=== PATIENT | male | born 1980 | race Caucasian/White ===

== ENCOUNTER 2018-12-22 08:09 | Emergency (ER) | payer SELFPAY ==
--- NOTE | 2018-12-22 10:02 | ER Document Report ---
HPI - HPI Patient complains to provider of: Skin rash, sore throat Time Seen by Provider: 12/22/18 09:56 Onset: Last week Onset/Duration: Worse Quality of pain: Achy Pain Level: 4 Context: Patient complains of skin rash to extremities and chest for the past week that worsened over the past 3 days. Patient states he has been picking at the skin and is very sore. Patient also complains of a sore throat. No fever. Associated Symptoms: Other - Skin rash. denies: Fever, Headache, Sore throat Exacerbated by: Denies Relieved by: Denies Similar symptoms previously: Yes Recently seen / treated by doctor: No - ROS ROS below otherwise negative: Yes Systems Reviewed and Negative: Yes All other systems reviewed and negative - CONSTITUTIONAL Constitutional: DENIES: Fever, Chills - EENT EENT: REPORTS: Sore Throat - NEURO Neurology: DENIES: Headache, Weakness - GASTROINTESTINAL Gastrointestinal: DENIES: Nausea, Patient vomiting - MUSCULOSKELETAL Musculoskeletal: DENIES: Neck Pain - DERM Skin Color: Normal Skin Problems: Rash Past Medical History - General Information source: Patient - Social History Smoking Status: Current Every Day Smoker Smoking Education Provided: Yes Frequency of alcohol use: None Drug Abuse: None Occupation: None Family History: Reviewed & Not Pertinent Patient has suicidal ideation: No Patient has homicidal ideation: No Renal/ Medical History: Denies: Hx Peritoneal Dialysis Psychiatric Medical History: Reports: Hx Anxiety, Hx Depression Past Surgical History: Reports: Hx Orthopedic Surgery - facial reconstruction Vertical Provider Document - CONSTITUTIONAL Agree With Documented VS: Yes Exam Limitations: No Limitations General Appearance: WD/WN, No Apparent Distress - INFECTION CONTROL TRAVEL OUTSIDE OF THE [place] IN LAST 30 DAYS: No - HEENT HEENT: Atraumatic, Normocephalic, Pharyngeal Tenderness. negative: Pharyngeal Exudate, Pharyngeal Erythema, Tympanic Membrane Red, Tympanic Membrane Bulging - NECK Neck: Normal Inspection, Supple. negative: Lymphadenopathy-Left, Lymphadenopathy-Right - RESPIRATORY Respiratory: Breath Sounds Normal, No Respiratory Distress - CARDIOVASCULAR Cardiovascular: Regular Rate, Regular Rhythm - BACK Back: Normal Inspection - MUSCULOSKELETAL/EXTREMETIES Musculoskeletal/Extremeties: PALAK LAKHANI - NEURO Level of Consciousness: Awake, Alert, Appropriate Motor/Sensory: No Motor Deficit - DERM Integumentary: Warm, Dry, Rash - Patient with erythematous, excoriated rash to right knee, bilateral forearms, anterior chest and right side of face. Patient with tender indurated area to the submental area worrisome for possible developing abscess, no fluctuance Course - Re-evaluation Re-evalutation: 12/22/18 10:02 Patient with skin rash worrisome for impetigo with possible early developing abscess to the submental area. No potential airway compromise. No concern for Toñito's angina. Patient with incidental sore throat, no concern for peritonsillar abscess at this time. Patient will be placed on antibiotics to treat his skin rash. - Vital Signs Vital signs: Temp Pulse Resp BP Pulse Ox 97.7 F 85 18 137/86 H 95 12/22/18 08:11 12/22/18 08:11 12/22/18 08:11 12/22/18 08:11 12/22/18 08:11 Discharge - Discharge Clinical Impression: Skin rash, Impetigo Condition: Stable Disposition: HOME, SELF-CARE Instructions: Impetigo ([facility]), Cephalexin ([facility]), Trimethoprim-Sulfa ([facility]) Additional Instructions: Return immediately for any new or worsening symptoms Followup with your primary care provider, call tomorrow to make a followup appointment Prescriptions: Cephalexin Monohydrate [Keflex 500 mg Capsule] 500 mg PO Q6H 7 Days capsule Naproxen [Naprosyn 250 Nmg Tablet] 1 tab PO BID #14 tablet Sulfamethoxazole/Trimethoprim [Bactrim Ds Tablet] 1 each PO BID #20 tablet Forms: Smoking Cessation Education Referrals: [facility] [Provider Group] - Follow up tomorrow
[2018-12-22 10:26] VITALS: BP 125/89
== END 2018-12-22 10:05 | disposition home or self-care (01) ==
LOC: ER 08:09
DX: L01.00 Impetigo, unspecified (principal); J02.9 Acute pharyngitis, unspecified; F17.200 Nicotine dependence, unspecified, uncomplicated
CPT/HCPCS: 99282

== ENCOUNTER 2018-12-24 03:50 | Emergency (ER) | payer SELFPAY ==
[2018-12-24 04:13] VITALS: BP 132/83
--- NOTE | 2018-12-24 07:36 | ER Document Report ---
Entered by LUIS ALVAREZ SCRIBE 12/24/18 0716 Acting as scribe for:NEDA WYLIE MD ED General - General Chief Complaint: Diarrhea Stated Complaint: STOMACH CRAMPS Time Seen by Provider: 12/24/18 06:40 Notes: Patient is a 38-year-old male presenting to the emergency department complaining of diarrhea with associated cramping. Patient states that it began 2 days ago, he states that he was in the emergency department on 12/22 but did not say anything about it. Patient was prescribed Septra, and Keflex, he has not gotten his prescription filled yet. Patient states that he got out of penitent[facility] a week ago, he was taking Suboxone then was taken off and given Subutex when getting out. TRAVEL OUTSIDE OF THE [place] IN LAST 30 DAYS: No - Related Data Allergies/Adverse Reactions: No Known Allergies Allergy (Verified 12/22/18 08:09) Past Medical History - General Information source: Patient - Social History Smoking Status: Current Every Day Smoker Cigarette use (# per day): Yes Chew tobacco use (# tins/day): No Frequency of alcohol use: None Drug Abuse: None Family History: Reviewed & Not Pertinent Patient has suicidal ideation: No Patient has homicidal ideation: No Psychiatric Medical History: Reports: Hx Anxiety, Hx Depression Past Surgical History: Reports: Hx Orthopedic Surgery - facial reconstruction Review of Systems - Review of Systems Constitutional: No symptoms reported EENT: No symptoms reported Cardiovascular: No symptoms reported Respiratory: No symptoms reported Gastrointestinal: See HPI, Abdominal pain - Cramping, Diarrhea Genitourinary: No symptoms reported Male Genitourinary: No symptoms reported Musculoskeletal: No symptoms reported Skin: No symptoms reported Hematologic/Lymphatic: No symptoms reported Neurological/Psychological: No symptoms reported -: Yes All other systems reviewed and negative Physical Exam - Vital signs Vitals: Temp Pulse Resp BP Pulse Ox 97.4 F 95 18 132/83 H 97 12/24/18 04:09 12/24/18 04:09 12/24/18 04:09 12/24/18 04:09 12/24/18 04:09 - Notes Notes: Physical Exam: General: Alert, appears well. HEENT: M. Livia spots present in the right periorbital aspect of the face. Atr aumatic. PERRL. Extraocular movements intact. Oropharynx clear. Neck: Supple. Non-tender. Respiratory: No respiratory distress. Clear and equal breath sounds bilaterally. Cardiovascular: Regular rate and rhythm. Abdominal: Normal Inspection. Non-tender. No distension. Hyperactive Bowel Veronica nds. Back: Non-tender. No deformity or step off. Extremities: Moves all four extremities. Upper extremities: Normal inspection. Normal ROM. Lower extremities: Normal inspection. No edema. Normal ROM. Neurological: Normal cognition. AAOx4. Normal speech. Psychological: Normal affect. Normal Mood. Skin: Warm. Dry. Normal color. Course - Vital Signs Vital signs: Temp Pulse Resp BP Pulse Ox 97.4 F 95 18 132/83 H 97 12/24/18 04:09 12/24/18 04:09 12/24/18 04:09 12/24/18 04:09 12/24/18 04:09 - Laboratory Result Diagrams: 12/24/18 07:57 12/24/18 07:57 Laboratory results interpreted by me: 12/24/18 07:57 BUN 24 H Total Protein 8.8 H Albumin 5.2 H Discharge - Discharge Clinical Impression: Clostridium difficile diarrhea Condition: Stable Disposition: HOME, SELF-CARE Additional Instructions: C. (Clostridium) Difficile Infection C. difficile bacteria are everywhere - in soil, air, water, human and animal feces, and on most surfaces. The bacteria don't create problems until they grow in abnormally large numbers in the intestinal tract of people taking antibiotics or other antimicrobial drugs. Then, C. difficile can cause symptoms ranging from diarrhea to life-threatening inflammations of the colon. According to the Centers for Disease Control and Prevention, each year in the [place] C. difficile is responsible for tens of thousands of cases of diarrhea and at least 5,000 deaths. And the problem is getting worse. The number of C. difficile infections doubled between 1992 and 2002, with most of the increase coming after 1999. Your intestinal tract contains hundreds of kinds of bacteria (intestinal trell). Many are essential, helping to synthesize certain vitamins and stimulating the immune system. And some play a bishop role in suppressing the growth of harmful organisms. But when you take an antibiotic to treat an infection, it often destroys these beneficial bacteria as well as the bacteria that's causing your illness. Without enough healthy bacteria, dangerous pathogens such as C. difficile can quickly grow out of control. Once it takes hold, C. difficile can produce two virulent toxins that attack the lining of the intestine. The toxins destroy cells and produce pseudomembranes - telltale patches (plaques) of inflammatory cells and decaying cellular debris on the interior surface of the colon. Almost any antibiotic can cause harmful bacteria to proliferate in the intestine, but ampicillin, amoxicillin, clindamycin, fluoroquinolones and cephalosporins are most often implicated in C. difficile infections. The use of broad-spectrum drugs that target a wide range of bacteria and the taking of antibiotics for a prolonged period increase the chance of infection. Other antimicrobials, including antiviral and antifungal drugs, and chemotherapy medications also can lead to an increased risk of infection with C. difficile. It's also a growing problem among otherwise healthy people. And although the infection can usually be controlled with antibiotics, virulent strains of C. difficile are now appearing that resist treatment with common medications. Analysis of your diarrhea shows that you have the C. difficile infection. Take the medications as prescribed. Follow-up with a local medical doctor in 2 weeks for recheck. RETURN TO THE EMERGENCY ROOM IF ANY NEW OR WORSENING SYMPTOMS. Prescriptions: Metronidazole [Flagyl 500 mg Tablet] 500 mg PO TID #30 tablet Scribe Attestation: 12/24/18 07:36 I personally performed the services described in the documentation, reviewed and edited the documentation which was dictated to the scribe in my presence, and it accurately records my words and actions. I personally performed the services described in the documentation, reviewed and edited the documentation which was dictated to the scribe in my presence, and it accurately records my words and actions.
[2018-12-24] MEDS ORDERED: ONDANSETRON 4 MG TAB.RAPDIS PO ONE (08:02)
[2018-12-24 08:15] LABS: ABSOLUTE EOSINOPHILS # (AUTO) 0.2 10^3/uL (0.0-0.6); ABSOLUTE LYMPHOCYTES (AUTO) 1.7 10^3/uL (0.5-4.7); ABSOLUTE MONOCYTES (AUTO) 0.5 10^3/uL (0.1-1.4); ABSOLUTE NEUT (AUTO) 7.2 10^3/uL (1.7-8.2); BASOPHILS % (AUTO) 0.5 % (0-2); EOSINOPHILS % (AUTO) 1.8 % (0-6); HEMATOCRIT 45.9 % (37.9-51.0); HEMOGLOBIN 15.5 g/dL (13.5-17.0); LYMPHOCYTES % (AUTO) 17.2 % (13-45); MEAN CORPUSCULAR HEMOGLOBIN 29.2 pg (27.0-33.4); MEAN CORPUSCULAR HGB CONC 33.8 g/dL (32.0-36.0); MEAN CORPUSCULAR VOLUME 86 fl (80-97); MONOCYTES % (AUTO) 5.6 % (3-13); PLATELET COUNT 289 10^3/uL (150-450); RED BLOOD COUNT 5.31 10^6/uL (4.35-5.55); RED CELL DISTRIBUTION WIDTH 13.1 % (11.5-14.0); SEGMENTED NEUTROPHILS % (AUTO) 74.9 % (42-78); TOTAL CELLS COUNTED % (AUTO) 100 %; WHITE BLOOD COUNT 9.6 10^3/uL (4.0-10.5)
[2018-12-24 08:33] LABS: ALANINE AMINOTRANSFERASE 25 U/L (21-72); ALBUMIN 5.2 g/dL (3.5-5.0); ALKALINE PHOSPHATASE 115 U/L (38-126); ANION GAP 13 (5-19); ASPARTATE AMINO TRANSFERASE 30 U/L (17-59); BILIRUBIN,DIRECT 0.3 mg/dL (0.0-0.4); BILIRUBIN,TOTAL 0.8 mg/dL (0.2-1.3); BLOOD UREA NITROGEN 24 mg/dL (7-20); CARBON DIOXIDE 26 mmol/L (22-30); CHLORIDE 102 mmol/L (98-107); GLUCOSE 106 mg/dL (75-110); POTASSIUM 4.1 mmol/L (3.6-5.0); SODIUM 141.3 mmol/L (137-145); TOTAL PROTEIN 8.8 g/dL (6.3-8.2)
== END 2018-12-24 09:37 | disposition home or self-care (01) ==
LOC: ER 03:50
DX: A04.72 Enterocolitis due to Clostridium difficile, not specified as recurrent (principal); R10.9 Unspecified abdominal pain; Z79.899 Other long term (current) drug therapy; F17.210 Nicotine dependence, cigarettes, uncomplicated
CPT/HCPCS: 99284; 36415; 87045; 89055; 87205; 85025; 80053; 87493; S0119

== ENCOUNTER 2019-01-24 22:48 | Emergency (ER) | payer SELFPAY ==
[2019-01-24 23:06] VITALS: BP 120/64
--- NOTE | 2019-01-25 00:31 | ER Document Report ---
HPI - [facility] Patient complains to provider of: right great toe pain Time Seen by Provider: 01/25/19 00:26 Onset/Duration: Gradual Quality of pain: Achy Severity: Mild Pain Level: 2 Context: 38 yr old male pt, with the listed pmh, here for right great toe pain x several days. he has had surgery on this foot months ago. he just got out of jail. he is on subutex for prior addiction. no numbness,weakness or tingling. no other surgeries on this extremity. hasn't sought care until now. no pain anywhere else. pt able to walk. denies intoxication. pain worse with movement and palpation. better with rest. no other fall or trauma or associated sx. no hx of diabetes or asthma. last tdap <5 yrs ago. no recent abx or steroids. hasn't put anything on the area. no prior hx of gout. no fevers, drainage, or weakness. no other associated sx. Exacerbated by: Movement Relieved by: Remaining still Similar symptoms previously: Yes Recently seen / treated by doctor: No - ROS Systems Reviewed and Negative: Yes All other systems reviewed and negative - to include 10 unless, mentioned in the hpi Past Medical History - General Information source: Patient - Social History Smoking Status: Unknown if Ever Smoked Frequency of alcohol use: unknown Drug Abuse: Prescription drugs - prior-on subutex, Other - unknown Family History: Reviewed & Not Pertinent Patient has suicidal ideation: No Patient has homicidal ideation: No Renal/ Medical History: Denies: Hx Peritoneal Dialysis Psychiatric Medical History: Reports: Hx Anxiety, Hx Depression Past Surgical History: Reports: Hx Orthopedic Surgery - facial reconstruction, right great toe reconstruction - Immunizations Immunizations up to date: Yes Vertical Provider Document - CONSTITUTIONAL Agree With Documented VS: Yes Exam Limitations: No Limitations Notes: GENERAL_APPEARANCE: alert and oriented x 3, mood and affect wnl, cooperative, no obvious discomfort. Pleasant, middle aged white male, smiling, speaking in full sentences, in no sign of pain or resp distress, easily sitting up, adult female at bedside with a service dog VITALS: reviewed, see vital signs table. HEAD: no_swelling\tenderness on the head, normocephalic, atraumatic NECK: supple, no_neck_tenderness. full rom and full strength. HEART: RRR LUNGS: CTAB, good air exchange diffusely BACK: no_back_tenderness EXTREMITIES: good pulse in all extremities,right leg: the right quinn has a small 1cm healing scabbed over wound with mild surrounding erythema to the midshaft anterior portion, and the right great toe: has a healed scar, chronic appearing deformity, and has no erythema, mild-no swelling, mild tenderness and no other abrasions\lacerations other than as noted. Full rom and full strength. Normal gait. good hand heel dipper. brisk cap refill. no other shortening or rotation of the limb or obvious deformities to suggest trauma unless otherwise noted. no other swelling or ttp. no sign of gout. no subungual hematoma. no foot drop. neg dg sign. neg chakraborty squeeze. no sign of compartment syndrome. no drainable fluid collection. no sign of septic jt SKIN: warm, dry, good_color. no rash. no other grossly visible overlying skin changes to suggest trauma NEURO: motor_intact and sensory_intact in injured_extremity. - INFECTION CONTROL TRAVEL OUTSIDE OF THE [place] IN LAST 30 DAYS: No Course - Re-evaluation Re-evalutation: pt here for right great toe pain and a small wound on his right anterior quinn for a while now. he just got out of jail. he is on subutex so narcotics will be avoided. his right great toe xray was read by rad as no acute fx and reviewed by myself. however pt didn't care to wait for rad read as they were having some issues getting the read transcribed electronically or even sent over and it was taking longer than expected which i did apologize to pt for; however, pt stated he was ready to go and would no longer even wait for me to print off his dc instructions or scripts for antibiotics or the final read of his xr and left the ED ambulating normally. pt eloped from the ED prior to receiving his dc instructions or scripts for abx. i had already advised wound care and naproxen for pain. he also has subutex at home he can cont to take. i did write him scripts for bactrim and keflex should he return or call and ask for them. his toe doesn't look like gout to me. he has no hx of this. denies any trauma or injury. advised to f/u with pcp in 1-2 days. return for any worsening symptoms. vss. well appearing. satting well on ra. neurononfocal. pt understands and agrees to plan. On reexam, pt improved with tx listed. remained stable. nontoxic. well appearing. pain controlled. tolerating po. requesting to go home. neurononfocal. Documentation achieved through voice recording which may lead to some occasional accidental typographical errors. Extensive efforts have been made to proof read documentation to make sure these are the least as possible.\ Category Date Time Status FOOT RIGHT 2 VIEWS [RAD] Stat Exams 01/24/19 Completed - Vital Signs Vital signs: Temp Pulse Resp BP Pulse Ox 98.2 F 69 12 120/64 96 01/24/19 23:05 01/24/19 23:05 01/24/19 23:05 01/24/19 23:05 01/24/19 23:05 Temp Pulse Resp BP Pulse Ox 01/24/19 23:05 98.2 F 69 12 120/64 96 - Diagnostic Test Radiology reviewed: Image reviewed, Reports reviewed Radiology results interpreted by me: IMPRESSION: subluxation and angulation of the right first mtp jt, not able to determine if this is acute or chronic secondary to no old avail for comparison. no fracture. The radiology system was having some issues transcribing the reads over electronically so this above reading was received via nursing by fax from radiology. Discharge - Discharge Clinical Impression: Cellulitis of right leg Condition: Good Disposition: ELOPED Instructions: Cellulitis ([facility]) Additional Instructions: Follow-up with PCP in 1 to 2 days. Return for any worsening symptoms. Continue to take your Subutex for pain. Wound care as discussed. Take the medication as prescribed. you can also take naproxen twice daily as needed for pain. Prescriptions: Cephalexin Monohydrate [Keflex 500 mg Capsule] 500 mg PO Q6H 7 Days capsule Sulfamethoxazole/Trimethoprim [Bactrim Ds Tablet] 1 each PO BID #14 tablet
== END 2019-01-25 01:54 | disposition left against medical advice (07) ==
LOC: ER 22:48
DX: L03.115 Cellulitis of right lower limb (principal); M79.674 Pain in right toe(s)
CPT/HCPCS: 99283

== ENCOUNTER 2019-03-23 19:44 | Emergency (ER) | payer SELFPAY ==
--- NOTE | 2019-03-23 20:04 | ER Document Report ---
ED Medical Screen (RME) - General Chief Complaint: Foot Injury Stated Complaint: LEFT FOOT INJURY Time Seen by Provider: 03/23/19 20:00 Notes: Patient is a 38-year-old male who presents the emergency department with a chief complaint of left foot pain. He states he stepped on nail on Friday. Today he reports night sweats. He has been taking ibuprofen for the pain. Patient's last tetanus vaccine was in 2017. Exam: puncture wound to distal plantar section of foot. Tender to touch. I have greeted and performed a rapid initial assessment of this patient. A comprehensive ED assessment and evaluation of the patient, analysis of test results and completion of medical decision making process will be conducted by an additional ED providers. TRAVEL OUTSIDE OF THE [place] IN LAST 30 DAYS: No - Related Data Allergies/Adverse Reactions: No Known Allergies Allergy (Verified 12/22/18 08:09) Past Medical History - Social History Frequency of alcohol use: None Drug Abuse: None Renal/ Medical History: Denies: Hx Peritoneal Dialysis Psychiatric Medical History: Reports: Hx Anxiety, Hx Depression Past Surgical History: Reports: Hx Orthopedic Surgery - facial reconstruction, right great toe reconstruction - Immunizations Immunizations up to date: Yes Physical Exam - Vital signs Vitals: Temp Pulse Resp BP Pulse Ox 98.1 F 85 14 116/69 99 03/23/19 19:56 03/23/19 19:56 03/23/19 19:56 03/23/19 19:56 03/23/19 19:56 Course - Vital Signs Vital signs: Temp Pulse Resp BP Pulse Ox 98.1 F 85 14 116/69 99 03/23/19 19:56 03/23/19 19:56 03/23/19 19:56 03/23/19 19:56 03/23/19 19:56
[2019-03-23] MEDS ORDERED: HYDROCODONE/ACETAMINOPHEN 5-325 MG TABLET PO ONE (20:47)
[2019-03-23] MEDS ORDERED: CIPROFLOXACIN HCL 500 MG TABLET PO ONE (20:47)
--- NOTE | 2019-03-23 20:47 | ER Document Report ---
ED General - General Chief Complaint: Foot Injury Stated Complaint: LEFT FOOT INJURY Time Seen by Provider: 03/23/19 20:00 Notes: Patient is a 38-year-old male that presents to the emergency department for chief complaint of left foot injury. Patient states that he stepped on a nail with a boot on on Friday and went into his foot despite wearing shoes. He states that he pulled the nail out of his foot while still wearing his shoes. He had minimal bleeding at the time, he was up on his feet most the day today and has had excruciating pain in the bottom of his foot so he decided come to the emergency department. He has not noticed any drainage, redness or any more swelling than he had yesterday. Denies any any fevers, chills, night sweats. No prior injuries to that foot. Past Medical History: Denies chronic medical conditions Past Surgical History: Right foot surgery, facial reconstruction Social History: Admits to smoking cigarettes, denies alcohol or drug use. Family History: Reviewed and noncontributory for presenting illness Allergies: Reviewed, see documented allergy list. REVIEW OF SYSTEMS: Other than noted above, the 12 point review of systems was reviewed with the patient and were negative, all pertinent findings are included in the HPI. PHYSICAL EXAMINATION: Vital signs reviewed, nursing noted reviewed. GENERAL: Well-appearing, well-nourished and in no acute distress. HEAD: Atraumatic, normocephalic. EYES: Eyes appear normal, sclera anicteric, conjunctiva are normal. ENT: Moist mucous membranes. NECK: Normal range of motion, supple without lymphadenopathy LUNGS: Breath sounds clear to auscultation bilaterally and equal. No wheezes rales or rhonchi. HEART: Regular rate and rhythm without murmurs EXTREMITIES: good range of motion, no pitting or edema. The left foot demonstrates an area on the plantar aspect, that appears to be callus from a healing wound, no erythema or drainage at the site, there is significant tenderness to palpation to this area with mild induration, there is trace lymphangitis medially noted on the left foot, patient overall has good range of motion of the feet bilaterally, cap refill less than 3 seconds in all digits. Sensation intact distally. Tendon function intact. NEUROLOGICAL: No focal neurological deficits. Moves all extremities spontaneously Motor and sensory grossly intact on exam. PSYCH: Normal mood, normal affect. SKIN: Warm, Dry, normal turgor, no rashes or lesions noted on exposed skin TRAVEL OUTSIDE OF THE [place] IN LAST 30 DAYS: No - Related Data Allergies/Adverse Reactions: No Known Allergies Allergy (Verified 12/22/18 08:09) Past Medical History - Social History Smoking Status: Current Every Day Smoker Frequency of alcohol use: None Drug Abuse: None Family History: Reviewed & Not Pertinent Patient has suicidal ideation: No Patient has homicidal ideation: No Renal/ Medical History: Denies: Hx Peritoneal Dialysis Psychiatric Medical History: Reports: Hx Anxiety, Hx Depression Past Surgical History: Reports: Hx Orthopedic Surgery - facial reconstruction, right great toe reconstruction - Immunizations Immunizations up to date: Yes Physical Exam - Vital signs Vitals: Temp Pulse Resp BP Pulse Ox 98.1 F 85 14 116/69 99 03/23/19 19:56 03/23/19 19:56 03/23/19 19:56 03/23/19 19:56 03/23/19 19:56 Course - Re-evaluation Re-evalutation: Patient seen and examined vital signs reviewed. Patient was evaluated and treated as appropriate for the patient's presenting symptoms and complaint, with consideration of any critical or life threatening conditions that may be associated with their obtained history and exam as noted above. Patient was treated with [place], and started on ciprofloxacin p.o. 500 mg, x-ray negative for retained foreign body. The patient was re-evaluated and was stable Evaluation was most consistent with puncture wound and possible early cellulitis, will start on ciprofloxacin, for 10 days, and prescribed [place] to take home from the ED. Patient also given crutches. Plan of care was discussed with the patient at this point, after careful consideration I feel that that patient can be discharged from the emergency department, the patient was educated treatments and reasons to return to the emergency department based on their presumed diagnosis as noted above, they were advised to followup with a primary care physician in 2-3 days. Patient was agreeable to plan of care. *Note is created using voice recognition software and may contain spelling, sy ntax or grammatical errors. - Vital Signs Vital signs: Temp Pulse Resp BP Pulse Ox 98.1 F 85 14 116/69 99 03/23/19 19:56 03/23/19 19:56 03/23/19 19:56 03/23/19 19:56 03/23/19 19:56 Discharge - Discharge Clinical Impression: Puncture wound Cellulitis Qualifiers: Site of cellulitis: extremity Site of cellulitis of extremity: lower extremity Laterality: left Qualified Code(s): L03.116 - Cellulitis of left lower limb Condition: Stable Disposition: HOME, SELF-CARE Instructions: Cellulitis ([facility]) Additional Instructions: Please complete the entire course of antibiotics as prescribed, this antibiotic, should be taken without any other foods, twice daily, avoid taking with milk in particular, and avoid heavy lifting or running while taking the antibiotic. Take the pain medication for breakthrough type pain, do not drive while taking this medication. Prescriptions: Ciprofloxacin HCl [Cipro 500 mg Tablet] 500 mg PO BID #20 tablet Referrals: PAT ALCARAZ MD [ACTIVE STAFF] - Follow up in 3-5 days (primary care. )
[2019-03-23] MEDS ORDERED: HYDROCODONE/ACETAMINOPHEN 5-325 MG (6 TAB/ER DISP) PO PRN (21:15)
--- NOTE | 2019-03-23 21:20 | RADIOLOGY REPORT (SQ) ---
EXAM DESCRIPTION: Left foot RadLex: XR FOOT 3 OR MORE VIEWS Views: 3 CLINICAL HISTORY: 38 years Male, puncture wound COMPARISON: None. FINDINGS: Negative for acute fracture, dislocation, or radiopaque foreign body. No soft tissue air. No lytic bone changes. No cortical disruption. IMPRESSION: 1. No acute findings.
[2019-03-23 21:25] VITALS: BP 129/74
== END 2019-03-23 21:29 | disposition home or self-care (01) ==
LOC: ER 19:44
DX: S91.342A Puncture wound with foreign body, left foot, initial encounter (principal); L03.116 Cellulitis of left lower limb; M79.672 Pain in left foot; W45.0XXA Nail entering through skin, initial encounter; F17.200 Nicotine dependence, unspecified, uncomplicated

== ENCOUNTER 2019-04-27 13:16 | Emergency (ER) | payer SELFPAY ==
--- NOTE | 2019-04-27 13:58 | RADIOLOGY REPORT (SQ) ---
EXAM DESCRIPTION: FINGER LEFT COMPLETED DATE/TIME: 04/27/2019 1:46 pm REASON FOR STUDY: laceration thumb COMPARISON: None. NUMBER OF VIEWS: Three views. TECHNIQUE: AP, lateral, and oblique images acquired of the left thumb. LIMITATIONS: Bandage material obscures fine detail of the 1st digit. FINDINGS: MINERALIZATION: Normal. BONES: No acute fracture or dislocation. No worrisome bone lesions. SOFT TISSUES: Punctate curvilinear metallic density overlies the radial aspect at the 2nd MCP joint. No additional radiopaque foreign bodies. Bandage material overlies the thumb. OTHER: No other significant finding. IMPRESSION: 1. No evidence of acute bony abnormality. 2. Punctate curvilinear metallic density overlies the radial aspect at the 2nd MCP joint compatible with foreign body. Of note, this is not at the digit of interest. Recommend correlation with physic al exam and patient history. TECHNICAL DOCUMENTATION: JOB ID: [id number] [employer]- All Rights Reserved Reading location - IP/workstation name: [email or web address]
[2019-04-27] MEDS ORDERED: LIDOCAINE 1% INJ-PF (10 MG/ML) 30 ML SDV INJ ONE (14:04)
--- NOTE | 2019-04-27 14:05 | ER Document Report ---
HPI - HPI Patient complains to provider of: thumb laceration Time Seen by Provider: 04/27/19 13:25 Onset: Just prior to arrival Onset/Duration: Sudden Pain Level: 3 Context: 38-year-old male presents emergency department with laceration to his left thumb. Patient is right-hand dominant. Per reports he was playing some abigail when he cut himself with his knife. Reports the knife was clean. Patient reports tetanus is up-to-date. Patient has read the paper towel around the laceration and a cloth. He is very anxious sweating complains of severe pain. Associated Symptoms: None Exacerbated by: Denies Relieved by: Denies Similar symptoms previously: No Recently seen / treated by doctor: No - REPRODUCTIVE Reproductive: DENIES: : Past Medical History - General Information source: Patient - Social History Smoking Status: Current Every Day Smoker Cigarette use (# per day): Yes Frequency of alcohol use: None Drug Abuse: None Lives with: Family Family History: Reviewed & Not Pertinent Patient has suicidal ideation: No Patient has homicidal ideation: No Renal/ Medical History: Denies: Hx Peritoneal Dialysis Psychiatric Medical History: Reports: Hx Anxiety, Hx Depression Past Surgical History: Reports: Hx Orthopedic Surgery - facial reconstruction, right great toe reconstruction - Immunizations Immunizations up to date: Yes Vertical Provider Document - CONSTITUTIONAL Agree With Documented VS: Yes Exam Limitations: No Limitations General Appearance: WD/WN, No Apparent Distress - INFECTION CONTROL TRAVEL OUTSIDE OF THE [place] IN LAST 30 DAYS: No - HEENT HEENT: Atraumatic, Normocephalic - NECK Neck: Supple - RESPIRATORY Respiratory: No Respiratory Distress - CARDIOVASCULAR Cardiovascular: Regular Rate - MUSCULOSKELETAL/EXTREMETIES Musculoskeletal/Extremeties: MAEW, FROM, Tender - NEURO Level of Consciousness: Awake, Alert, Appropriate Motor/Sensory: No Motor Deficit - DERM Integumentary: Warm, Dry, Laceration - Flap laceration to the left thumb. Tawny ent has good cap refill no injury to his nailbed. Course - Re-evaluation Re-evalutation: 04/27/19 13:59 38-year-old male presents emergency department with complaints of left thumb laceration. Reports he was laying abigail when he cut his thumb. He reports his tetanus is up-to-date Finger X-Ray 04/27/19 13:30 IMPRESSION: 1. No evidence of acute bony abnormality. 2. Punctate curvilinear metallic density overlies the radial aspect at the 2nd MCP joint compatible with foreign body. Of note, this is not at the digit of interest. Recommend correlation with physical exam and patient history. 04/27/19 14:30 X-ray negative for acute fracture to the thumb. No injury to his second MCP. patient's thumb was soaked in normal saline and Shur-Clens cleaned really well. Thumb closed with 3 sutures. Patient was very anxious. He was instructed on signs and symptoms of infection. He was instructed to return here for suture removal or any signs of infection. He verbalized understanding to all instructions. - Vital Signs Vital signs: Temp Pulse Resp BP Pulse Ox 97.8 F 80 20 131/91 H 100 04/27/19 13:31 04/27/19 13:31 04/27/19 13:31 04/27/19 13:31 04/27/19 13:31 - Diagnostic Test Radiology reviewed: Image reviewed, Reports reviewed Procedures - Immobilization Left Thumb Immobilizer type: Finger splint (Static) Performed by: PCT Post-Proc Neuro Vasc Exam: Unchanged from pre-exam - Laceration/Wound Repair Left Thumb Time completed: 14:27 Wound length (cm): 1 - flap Wound's Depth, Shape: Superficial Laceration pre-procedure: Shur-Clens applied - soaked in ns and shurclens Volume Anesthetic (mLs): 1 Wound Repaired With: Sutures Suture Size/Type: 4:0 Number of Sutures: 3 Layer Closure?: No Post-procedure wound care: Sterile dressing applied, Splint applied Hands front picture: 1 - flap laceration, repaired with 3 sutures, splint applied Discharge - Discharge Clinical Impression: Thumb laceration Condition: Stable Disposition: HOME, SELF-CARE Instructions: Laceration Care ([facility]), Soap Cleansing ([facility]), Temporary Splint ([facility]) Additional Instructions: *You have been treated for a thumb laceration *Monitor the site for signs of infection such as increasing pain, redness, sw elling, warmth *Keep your thumb clean maintain the finger splint to protect the thumb *Follow up here in 14 days for removal of sutures Take Tylenol or Motrin as indicated for pain *Return to ED earlier for signs of infection, worsening condition, changes, needs Monitor your blood pressure. Your blood pressure was elevated today. This may be because you were anxious, in pain or because you need medication. It is important to follow up with your primary care provider for full evaluation. Forms: Elevated Blood Pressure
[2019-04-27 14:31] VITALS: BP 112/66
== END 2019-04-27 14:31 | disposition home or self-care (01) ==
LOC: ER 13:16
DX: S61.012A Laceration without foreign body of left thumb without damage to nail, initial encounter (principal); W26.0XXA Contact with knife, initial encounter; Y93.89 Activity, other specified; F17.210 Nicotine dependence, cigarettes, uncomplicated
CPT/HCPCS: 73140; 12001; J3490; 99283

== ENCOUNTER 2019-05-10 21:17 | Emergency (ER) | payer SELFPAY ==
[2019-05-10 21:38] VITALS: BP 119/68
[2019-05-10] MEDS ORDERED: IBUPROFEN 600 MG TABLET PO ONE (21:41)
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
--- NOTE | 2019-05-10 23:16 | RADIOLOGY REPORT (SQ) ---
EXAM DESCRIPTION: XR FEMUR 2 VIEWS COMPLETED DATE/TME: 05/10/2019 21:41 CLINICAL HISTORY: 38 years, Male, thigh trauma COMPARISON: None. NUMBER OF VIEWS: Four TECHNIQUE: Frontal and lateral radiographs of the left femur were obtained LIMITATIONS: None. FINDINGS: Visualized osseous structures are normal in appearance. Joint spaces are well-maintained. No acute fracture or dislocation is evident. IMPRESSION: No acute osseous anomaly. copyright 2010 [employer]- All Rights Reserved
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
== END 2019-05-11 00:51 | disposition home or self-care (01) ==
LOC: ER 21:17
DX: S70.12XA Contusion of left thigh, initial encounter (principal); M79.652 Pain in left thigh; W22.8XXA Striking against or struck by other objects, initial encounter; Y92.512 Supermarket, store or market as the place of occurrence of the external cause; F17.200 Nicotine dependence, unspecified, uncomplicated
CPT/HCPCS: 99283

== ENCOUNTER 2019-10-16 13:38 | Emergency (ER) | payer SELFPAY ==
[2019-10-16 13:45] VITALS: BP 118/71
--- NOTE | 2019-10-16 14:22 | ER Document Report ---
ED Medical Screen (RME) - General Chief Complaint: Foreign Body Stated Complaint: FOREIGN BODY Time Seen by Provider: 10/16/19 14:02 Mode of Arrival: Ambulatory Information source: Patient Notes: 39-year-old male presents with a emergency department with complaints of a splinter in his right wrist. Reports it just happened prior to arrival he was carrying some heavy wood. Denies fever vomiting diarrhea. Reports his tetanus is up-to-date. Large foreign body palpated under the skin of his right wrist. Patient takes methadone now denies drugs and alcohol. I have greeted and performed a rapid initial assessment of this patient. A comprehensive ED assessment and evaluation of the patient, analysis of test results and completion of the medical decision making process will be conducted by additional ED providers. TRAVEL OUTSIDE OF THE [place] IN LAST 30 DAYS: No - Related Data Allergies/Adverse Reactions: No Known Allergies Allergy (Verified 04/27/19 13:22) Past Medical History Renal/ Medical History: Denies: Hx Peritoneal Dialysis Psychiatric Medical History: Reports: Hx Anxiety, Hx Depression Past Surgical History: Reports: Hx Orthopedic Surgery - facial reconstruction, right great toe reconstruction - Immunizations Immunizations up to date: Yes Physical Exam - Vital signs Vitals: Temp Pulse Resp BP Pulse Ox 97.7 F 70 18 118/71 98 10/16/19 13:44 10/16/19 13:44 10/16/19 13:44 10/16/19 13:44 10/16/19 13:44 Course - Vital Signs Vital signs: Temp Pulse Resp BP Pulse Ox 97.7 F 70 18 118/71 98 10/16/19 13:44 10/16/19 13:44 10/16/19 13:44 10/16/19 13:44 10/16/19 13:44
--- NOTE | 2019-10-16 14:40 | RADIOLOGY REPORT (SQ) ---
EXAM DESCRIPTION: WRIST RIGHT 3 VIEWS IMAGES COMPLETED DATE/TIME: 10/16/2019 2:27 pm REASON FOR STUDY: foreign body COMPARISON: None. NUMBER OF VIEWS: Three views. TECHNIQUE: AP, lateral, and oblique radiographic images acquired of the right wrist. LIMITATIONS: None. FINDINGS: MINERALIZATION: Normal. BONES: No acute fracture or dislocation. No worrisome bone lesions. Normal alignment. SOFT TISSUES: No soft tissue swelling. No foreign body. OTHER: No other significant finding. IMPRESSION: NEGATIVE STUDY OF THE RIGHT WRIST. NO RADIOGRAPHIC EVIDENCE OF ACUTE INJURY. TECHNICAL DOCUMENTATION: JOB ID: [id number] 2010 [employer]- All Rights Reserved Reading location - IP/workstation name: [email or web address]
--- NOTE | 2019-10-16 14:44 | ER Document Report ---
ED Foreign Body - General Chief Complaint: Foreign Body Stated Complaint: FOREIGN BODY Time Seen by Provider: 10/16/19 14:02 Primary Care Provider: MAX ELLISON MD [ACTIVE STAFF] - Follow up as needed Mode of Arrival: Ambulatory Information source: Patient Notes: 39-year-old male with no previous medical problems presents to the emergency room with concerns for a splinter to his right wrist. Patient states he was carrying a large piece of wood when it slipped a piece of it came off and went into his right wrist. States it happened just prior to arrival. States he is unable to get it out. Patient is right-handed. States his tetanus is up-to-date. TRAVEL OUTSIDE OF THE [place] IN LAST 30 DAYS: No - Related Data Allergies/Adverse Reactions: No Known Allergies Allergy (Verified 04/27/19 13:22) Past Medical History - General Information source: Patient - Social History Smoking Status: Current Every Day Smoker Frequency of alcohol use: None Drug Abuse: Methamphetamine - Denies any recent drug use Family History: Reviewed & Not Pertinent Renal/ Medical History: Denies: Hx Peritoneal Dialysis Psychiatric Medical History: Reports: Hx Anxiety, Hx Depression Past Surgical History: Reports: Hx Orthopedic Surgery - facial reconstruction, right great toe reconstruction - Immunizations Immunizations up to date: Yes Review of Systems - Review of Systems Constitutional: No symptoms reported Cardiovascular: No symptoms reported Respiratory: No symptoms reported Musculoskeletal: No symptoms reported Skin: Other - Abrasion, foreign body right wrist Neurological/Psychological: No symptoms reported -: Yes All other systems reviewed and negative Physical Exam - Vital signs Vitals: Temp Pulse Resp BP Pulse Ox 97.7 F 70 18 118/71 98 10/16/19 13:44 10/16/19 13:44 10/16/19 13:44 10/16/19 13:44 10/16/19 13:44 - General General appearance: Appears well, Alert In distress: Mild - HEENT Head: Normocephalic, Atraumatic Eyes: Normal Pupils: PERRL - Respiratory Respiratory status: No respiratory distress Chest status: Nontender Breath sounds: Normal Chest palpation: Normal - Cardiovascular Rhythm: Regular Heart sounds: Normal auscultation Murmur: No - Extremities General upper extremity: Normal strength Wrist: Tender - Distal volar aspect of the right wrist with a small abrasion noted. There is an obvious foreign body that is palpated under the skin. Tender to palpation. No obvious deformity noted., Abrasion Hand: Normal, Nontender - Neurological Neuro grossly intact: Yes Cognition: Normal Orientation: AAOx4 Akbar Coma Scale Eye Opening: Spontaneous Akbar Coma Scale Verbal: Oriented [place] Coma Scale Motor: Obeys Commands Akbar Coma Scale Total: 15 Speech: Normal Motor strength normal: LUE, RUE, LLE, RLE Sensory: Normal Notes: Positive right radial pulse. Capillary refill less than 3 seconds. - Skin Skin Temperature: Warm Skin Moisture: Dry Skin Color: Normal Skin irregularity: other - Abrasion Location of irregularity: Extremities - There is a very small abrasion which correlates with a possible entry wound on the medial distal aspect of the right wrist. Course - Re-evaluation Re-evalutation: 10/16/19 15:45 Reviewed x-ray results with patient that there is no obvious foreign body noted on x-ray. However there is foreign body palpated. Patient was counseled that we will not be able to remove it in the emergency room as it is too deep underneath the skin. Patient became extremely upset and wants to know why we would not just cut it and remove it. Reiterated to patient that we cannot do that type of the procedure in the emergency room that this will need to be done as an outpatient procedure that it may come to the surface and come out on its own. Patient was counseled on proper wound care. Antibiotics as prescribed. He was given strict return to the emergency room guidelines. Return for any new or worsening symptoms. All questions were answered. Patient verbalized understanding and agreed with plan of care - Vital Signs Vital signs: Temp Pulse Resp BP Pulse Ox 97.7 F 70 18 118/71 98 10/16/19 13:44 10/16/19 13:44 10/16/19 13:44 10/16/19 13:44 10/16/19 13:44 Discharge - Discharge Clinical Impression: Foreign body (FB) in soft tissue Condition: Stable Disposition: HOME, SELF-CARE Instructions: Foreign Body ([facility]) Additional Instructions: Warm compresses 20 minutes 3 times a day. Antibiotics as prescribed. Make an outpatient follow-up appointment with a general surgeon for removal of foreign body. Return for any new or worsening symptoms. Prescriptions: Sulfamethoxazole/Trimethoprim [Bactrim Ds Tablet] 1 each PO BID 10 Days #20 tablet Sulfamethoxazole/Trimethoprim [Bactrim Ds Tablet] 1 tab PO BID 10 Days #20 tablet Referrals: MAX ELLISON MD [ACTIVE STAFF] - Follow up as needed
== END 2019-10-16 15:45 | disposition home or self-care (01) ==
LOC: ER 13:38
DX: S60.851A Superficial foreign body of right wrist, initial encounter (principal); S60.811A Abrasion of right wrist, initial encounter; W22.8XXA Striking against or struck by other objects, initial encounter; Y93.89 Activity, other specified; F17.200 Nicotine dependence, unspecified, uncomplicated
CPT/HCPCS: 99283

== ENCOUNTER 2020-03-11 11:21 | Emergency (ER) | payer SELFPAY ==
--- NOTE | 2020-03-11 11:44 | ER Document Report ---
ED Medical Screen (RME) - General Chief Complaint: Chest Pain Stated Complaint: SHORTNESS OF BREATH/CHEST PAIN Time Seen by Provider: 03/11/20 11:32 Mode of Arrival: Ambulatory Information source: Patient Notes: 39-year-old male presented to ED for chest pain causing him to be short of breath. He states that it is extremely painful to take a deep breath. He states night he woke up and tried to roll over and he could not move his right side. He took his left hand picked up his right arm and it just flop down. He states he picked up his leg with the left arm and he just flopped. He states he became extremely scared finally was able to roll over and up to get his she states she did not wake up enough to realize how bad he was feeling. He did go back to sleep after he had started to feel better. He states he is woke up and his chest is been hurting and has been very short of breath since then. He states he does smoke a pack a day does not drink does not use illicit drugs. He is on methadone for opiate abuse. He is alert oriented respirations regular nonlabored at this time. He states it is very painful to take a deep breath. I have greeted and performed a rapid initial assessment of this patient. A comprehensive ED assessment and evaluation of the patient, analysis of test results and completion of medical decision making process will be conducted by an additional ED providers. TRAVEL OUTSIDE OF THE [place] IN LAST 30 DAYS: No - Related Data Allergies/Adverse Reactions: No Known Allergies Allergy (Verified 04/27/19 13:22) Home Medications: methadone. Ibuporfen. Zoloft. gabapentin Past Medical History - Social History Chew tobacco use (# tins/day): No Frequency of alcohol use: None Drug Abuse: None Renal/ Medical History: Denies: Hx Peritoneal Dialysis Psychiatric Medical History: Reports: Hx Anxiety, Hx Depression Past Surgical History: Reports: Hx Orthopedic Surgery - facial reconstruction, right great toe reconstruction - Immunizations Immunizations up to date: Yes Physical Exam - Vital signs Vitals: Temp Pulse Resp BP Pulse Ox 97.8 F 59 L 18 116/64 98 03/11/20 11:28 03/11/20 11:28 03/11/20 11:28 03/11/20 11:28 10/03/20 11:28 Course - Vital Signs Vital signs: Temp Pulse Resp BP Pulse Ox 97.8 F 59 L 18 116/64 98 03/11/20 11:28 03/11/20 11:28 03/11/20 11:28 03/11/20 11:28 03/11/20 11:28
[2020-03-11] MEDS ORDERED: ASPIRIN 81 MG TABLET, CHEWABLE ONE (12:14)
--- NOTE | 2020-03-11 12:17 | EKG REPORT ---
SEVERITY:- NORMAL ECG - SINUS RHYTHM : Confirmed by: Serafin Thurman MD 11-Mar-2020 12:16:11
--- NOTE | 2020-03-11 12:22 | ER Document Report ---
ED Cardiac - General Chief Complaint: Chest Pain Stated Complaint: SHORTNESS OF BREATH/CHEST PAIN Time Seen by Provider: 03/11/20 11:32 Mode of Arrival: Ambulatory Notes: HPI: 39-year-old male with past medical history as recorded on methadone, gabapentin, and Zoloft who presents today stating 2 days of some pain to the right side of the chest that is "sharp". He states it is constant. He states slightly worse with deep breaths. He denies any nausea, vomiting, fevers, cough, shortness of breath, calf pain or leg swelling, recent trips or travel. Patient also states 2 nights ago he woke up and could not move his right arm or right leg. He states he was so weak he could not rollover. When I asked him what he did, he states he tried to talk to his who was sleeping but she did not wake up so he just went back to sleep. He states when he woke up he felt better. He states he still feels a little weakness to his right hand and right foot. No headache or double or blurry vision. ROS: See HPI All other review of systems reviewed and otherwise negative Reviewed vital signs and nursing note as charted by RN. PHYSICAL EXAM: CONSTITUTIONAL: Alert and oriented and responds appropriately to questions. Well-appearing; well-nourished HEAD: Normocephalic; atraumatic EYES: PERRL; Conjunctivae clear, sclerae non-icteric ENT: Normal nose; no rhinorrhea; moist mucous membranes; pharynx without lesions noted NECK: Supple without meningismus; non-tender; no cervical lymphadenopathy, no masses CARD: Regular rate and rhythm; no murmurs; reproducible chest discomfort palpation of the right chest wall with no swelling, erythema, or crepitus; symmetric distal pulses RESP: Normal chest excursion without splinting or tachypnea; breath sounds clear and equal bilaterally ABD/GI: Normal bowel sounds; non-distended; soft, non-tender; no palpable organomegaly or masses BACK: The back appears normal and is non-tender to palpation EXT: Normal ROM in all joints; non-tender to palpation; no edema SKIN: No acute lesions noted NEURO: CN 2-12 intact; 5/5 bilateral upper and lower extremity strength with sensation intact to light touch PSYCH: The patient's mood and manner are appropriate. Grooming and personal hygiene are appropriate. TRAVEL OUTSIDE OF THE [place] IN LAST 30 DAYS: No - Related Data Allergies/Adverse Reactions: No Known Allergies Allergy (Verified 04/27/19 13:22) Home Medications: methadone. Ibuporfen. Zoloft. gabapentin Past Medical History - General Information source: Patient - Social History Smoking Status: Current Every Day Smoker Chew tobacco use (# tins/day): No Frequency of alcohol use: None Drug Abuse: None Family History: Reviewed & Not Pertinent Renal/ Medical History: Denies: Hx Peritoneal Dialysis Psychiatric Medical History: Reports: Hx Anxiety, Hx Depression Past Surgical History: Reports: Hx Orthopedic Surgery - facial reconstruction, right great toe reconstruction - Immunizations Immunizations up to date: Yes Physical Exam - Vital signs Vitals: Temp Pulse Resp BP Pulse Ox 97.8 F 59 L 18 116/64 98 03/11/20 11:28 03/11/20 11:28 03/11/20 11:28 03/11/20 11:28 03/11/20 11:28 Course - Re-evaluation Re-evalutation: 03/11/20 12:21 Given the history and physical with constellation of symptoms, we will obtain a CT scan of the head, CT of the chest abdomen and pelvis, cardiac labs, and reassess. Patient is not tachycardic or hypoxic. I would like to evaluate for the possibility of dissection. I do believe PE to be unlikely. We will also obtain a CT scan of the head to evaluate for any obvious intracranial abnormality. EKG shows heart of 63, normal sinus rhythm, normal axis, no ST elevation or depression. Patient has excellent strength of all 4 extremities at this time. Excellent distal pulses equal in all 4 extremities. Patient has chest pain that is reproducible to the right chest wall with palpation right arm movement. No swelling to the arm or the leg. 03/11/20 14:37 Labs and imaging as recorded. No change in exam. Repeat chemistry has to be drawn secondary to myolysis. CTA is pending on this. 03/11/20 17:57 CT imaging as recorded. No change in exam. Vital signs are stable. Given the above history and physical examination, I believe it is reasonable to discharge the patient home at this time with strict return precautions and follow-up with the primary care physician for further evaluation and treatment. - Vital Signs Vital signs: Temp Pulse Resp BP Pulse Ox 98.1 F 59 L 15 116/73 99 03/11/20 15:01 03/11/20 11:28 03/11/20 16:06 03/11/20 16:06 03/11/20 16:06 - Laboratory Result Diagrams: 03/11/20 12:45 03/11/20 14:10 Laboratory results interpreted by me: 03/11/20 03/11/20 03/11/20 12:45 12:45 14:10 RBC 4.05 L Hgb 12.2 L Hct 35.2 L BUN 21 H Total Protein 6.1 L Urine Urobilinogen 2.0 H Ur Leukocyte Esterase TRACE H Discharge - Discharge Clinical Impression: Chest wall pain Condition: Good Disposition: HOME, SELF-CARE Additional Instructions: Come back immediately for any increased pain, any weakness or numbness, fever, shortness of breath, leg swelling, or any other acute problems. Please take 600 mg of ibuprofen every 6 hours for the next 5 days to treat the pain.
[2020-03-11] MEDS ORDERED: ASPIRIN 81 MG TABLET, CHEWABLE PO ONE (12:30)
--- NOTE | 2020-03-11 12:36 | RADIOLOGY REPORT (SQ) ---
EXAM DESCRIPTION: CT HEAD WITHOUT IMAGES COMPLETED DATE/TIME: 03/11/2020 11:09 am REASON FOR STUDY: Possible TIA COMPARISON: None. TECHNIQUE: Axial images acquired through the brain without intravenous contrast. Images reviewed wi th bone, brain and subdural windows. Additional sagittal and coronal reconstructions were generated. Images stored on PACS. All CT scanners at this facility use dose modulation, iterative reconstruction, and/or weight based d osing when appropriate to reduce radiation dose to as low as reasonably achievable (ALARA). [facility]: Dose Right [facility]: CareDose [facility]: Dose Right [facility]: Teradose 4D [facility]: Smart Med Access RADIATION DOSE: CT Rad equipment meets quality standard of care and radiation dose reduction techniq ues were employed. CTDIvol: 53.2 mGy. DLP: 937 mGy-cm. mGy. LIMITATIONS: None. FINDINGS: VENTRICLES: Normal size and contour. CEREBRUM: No masses. No hemorrhage. No midline shift. No evidence for acute infarction. Normal gra y/white matter differentiation. No areas of low density in the white matter. CEREBELLUM: No masses. No hemorrhage. No alteration of density. No evidence for acute infarction. EXTRAAXIAL SPACES: No fluid collections. No masses. ORBITS AND GLOBE: No intra- or extraconal masses. Normal contour of globe without masses. CALVARIUM: No fracture. PARANASAL SINUSES: No fluid or mucosal thickening. SOFT TISSUES: No mass or hematoma. OTHER: No other significant finding. IMPRESSION: NO ACUTE INTRACRANIAL IMAGING FINDINGS. EVIDENCE OF ACUTE STROKE: NO. COMMENT: Quality ID # 436: Final reports with documentation of one or more dose reduction techniques (e.g., Automated exposure control, adjustment of the mA and/or kV according to patient size, use of iterative reconstruction technique) TECHNICAL DOCUMENTATION: JOB ID: [id number] 2010 [employer]- All Rights Reserved Reading location - IP/workstation name: [email or web address]
--- NOTE | 2020-03-11 12:36 | RADIOLOGY REPORT (SQ) ---
EXAM DESCRIPTION: CHEST 2 VIEWS IMAGES COMPLETED DATE/TIME: 03/11/2020 11:03 am REASON FOR STUDY: Possible TIA COMPARISON: None. EXAM PARAMETERS: NUMBER OF VIEWS: two views TECHNIQUE: Digital Frontal and Lateral radiographic views of the chest acquired. RADIATION DOSE: NA LIMITATIONS: none FINDINGS: LUNGS AND PLEURA: No opacities, masses or pneumothorax. No pleural effusion. MEDIASTINUM AND HILAR STRUCTURES: No masses or contour abnormalities. HEART AND VASCULAR STRUCTURES: Heart normal size. No evidence for failure. BONES: No acute findings. HARDWARE: None in the chest. OTHER: No other significant finding. IMPRESSION: NO ACUTE RADIOGRAPHIC FINDING IN THE CHEST. TECHNICAL DOCUMENTATION: JOB ID: [id number] 2010 [employer]- All Rights Reserved Reading location - IP/workstation name: [email or web address]
[2020-03-11 13:06] LABS: ABSOLUTE BASOPHILS # (AUTO) 0.1 10^3/uL (0.0-0.2); ABSOLUTE EOSINOPHILS # (AUTO) 0.2 10^3/uL (0.0-0.6); ABSOLUTE LYMPHOCYTES (AUTO) 2.2 10^3/uL (0.5-4.7); ABSOLUTE MONOCYTES (AUTO) 0.5 10^3/uL (0.1-1.4); ABSOLUTE NEUT (AUTO) 4.8 10^3/uL (1.7-8.2); EOSINOPHILS % (AUTO) 2.4 % (0-6); HEMATOCRIT 35.2 % (37.9-51.0); HEMOGLOBIN 12.2 g/dL (13.5-17.0); LYMPHOCYTES % (AUTO) 28.5 % (13-45); MEAN CORPUSCULAR HEMOGLOBIN 30.2 pg (27.0-33.4); MEAN CORPUSCULAR HGB CONC 34.8 g/dL (32.0-36.0); MEAN CORPUSCULAR VOLUME 87 fl (80-97); MONOCYTES % (AUTO) 5.8 % (3-13); PLATELET COUNT 229 10^3/uL (150-450); RED BLOOD COUNT 4.05 10^6/uL (4.35-5.55); RED CELL DISTRIBUTION WIDTH 13.3 % (11.5-14.0); SEGMENTED NEUTROPHILS % (AUTO) 62.3 % (42-78); TOTAL CELLS COUNTED % (AUTO) 100 %; WHITE BLOOD COUNT 7.8 10^3/uL (4.0-10.5)
[2020-03-11 13:08] LABS: AMORPHOUS SEDIMENT,URINE TRACE /HPF; APPEARANCE,URINE SLIGHTLY-CLOUDY; BILIRUBIN,URINE NEGATIVE (NEGATIVE); COLOR,URINE YELLOW; GLUCOSE, URINE NEGATIVE (NEGATIVE); KETONES,URINE NEGATIVE (NEGATIVE); LEUKOCYTE ESTERASE,URINE TRACE (NEGATIVE); NITRITE,URINE NEGATIVE (NEGATIVE); PROTEIN,URINE NEGATIVE (NEGATIVE); URINE SPECIFIC GRAVITY 1.025
[2020-03-11 13:12] LABS: PROTHROMBIN TIME 12.4 SEC (11.4-15.4)
[2020-03-11 13:13] LABS: PARTIAL THROMBOPLASTIN TIME 30.7 SEC (23.5-35.8)
[2020-03-11 13:24] LABS: URINE AMPHETAMINES SCREEN NEGATIVE; URINE BARBITURATES SCREEN NEGATIVE; URINE BENZODIAZEPINES SCREEN NEGATIVE; URINE COCAINE SCREEN NEGATIVE; URINE MARIJUANA (THC) SCREEN NEGATIVE; URINE METHADONE SCREEN UNCONFIRMED POSITIVE; URINE PHENCYCLIDINE SCREEN NEGATIVE
[2020-03-11 14:55] LABS: ALBUMIN 3.6 g/dL (3.5-5.0); ALKALINE PHOSPHATASE 81 U/L (38-126); ANION GAP 8 (5-19); ASPARTATE AMINO TRANSFERASE 30 U/L (17-59); BILIRUBIN,DIRECT 0.3 mg/dL (0.0-0.4); BILIRUBIN,TOTAL 0.4 mg/dL (0.2-1.3); BLOOD UREA NITROGEN 21 mg/dL (7-20); CALCIUM 9.1 mg/dL (8.4-10.2); CARBON DIOXIDE 26 mmol/L (22-30); CHLORIDE 104 mmol/L (98-107); CREATINE KINASE 133 U/L (55-170); GLUCOSE 94 mg/dL (75-110); TOTAL PROTEIN 6.1 g/dL (6.3-8.2)
[2020-03-11] MEDS ORDERED: DIPHENHYDRAMINE HCL 50 MG/ML VIAL IV ONE (16:12)
[2020-03-11] MEDS ORDERED: METHYLPREDNISOLONE INJ 125 MG/2 ML SDV IV ONE (16:13)
[2020-03-11 16:35] VITALS: BP 116/73
--- NOTE | 2020-03-11 17:32 | RADIOLOGY REPORT (SQ) ---
EXAM DESCRIPTION: CTA CHEST; CTA ABDOMEN/PELVIS W WO IMAGES COMPLETED DATE/TIME: 03/11/2020 4:11 pm REASON FOR STUDY: 10; eval discection. Possible TIA on night. No reported injury. COMPARISON: None. CONTRAST TYPE AND DOSE: contrast/concentration: Isovue 350.00 mmol/ml; Total Contrast Delivered: 100 .0 ml; Total Saline Delivered: 90.0 ml RENAL FUNCTION: GFR > 60. TECHNIQUE: CT scan of the chest, abdomen and pelvis performed using helical scanning technique befor e and after dynamic intravenous contrast injection. Arterial phase images were obtained. Images rev iewed with lung, soft tissue and bone windows. Reconstructed coronal and sagittal MPR images reviewed . All images stored on PACS. All CT scanners at this facility use dose modulation, iterative reconstruction, and/or weight based d osing when appropriate to reduce radiation dose to as low as reasonably achievable (ALARA). [facility]: Dose Right [facility]: CareDose [facility]: Dose Right [facility]: Teradose 4D [facility]: Smart [email or web address] RADIATION DOSE: CT Rad equipment meets quality standard of care and radiation dose reduction techniq ues were employed. CTDIvol: 6.6 - 25.5 mGy. DLP: 954 mGy-cm. . LIMITATIONS: None. FINDINGS: VASCULATURE: Precontrast images demonstrate no aneurysm, significant calcified or noncalc ified atherosclerotic plaque. Postcontrast images demonstrate normal caliber of the ascending thorac ic aorta, aortic arch, and descending thoracic aorta. Normal caliber of the abdominal aorta. There is no significant calcified or noncalcified atherosclerotic plaque. 3 vessels arise from the cephala d portion of the aortic arch. No significant stenosis. No evidence of aortic dissection. No periao rtic fluid. Normal caliber and appearance of the celiac axis. Conventional hepatic arterial supply. The superior mesenteric, bilateral renal, and inferior mesenteric arteries are widely patent. Bila teral common iliac, internal and external iliac arteries are widely patent with no significant stenos is or occlusion. Bilateral common femoral and profunda and superficial femoral arteries are patent a nd normal as visualized. CHEST: AXILLAE: No adenopathy. CHEST WALL: No masses. No subcutaneous air. LUNGS: Trachea has normal caliber and appearance. No bronchial wall thickening or bronchiectasis. M inimal dependent atelectasis. No focal consolidation. No significant ground-glass attenuation. No suspicious pulmonary nodules. PLEURA: No effusions. No calcifications. THYROID: No masses or significant asymmetry. HILAR AND MEDIASTINAL STRUCTURES: No identified masses or abnormal nodes. AORTA AND GREAT VESSELS: No aneurysm. No dissection. PULMONARY ARTERIES: No identified pulmonary emboli. Study not optimized for the pulmonary arteries. HEART: No pericardial effusion. HARDWARE AND LIFELINES: None. BONES: No significant finding. OTHER: No other significant finding. ABDOMEN AND PELVIS: LIVER: Normal size and contour. No focal hepatic mass. Hepatic and portal veins are patent. SPLEEN: Normal size. No focal lesions. PANCREAS: No masses. No significant calcifications. No adjacent inflammation or peripancreatic flui d collections. Pancreatic duct not dilated. GALLBLADDER: No identified stones by CT criteria. No inflammatory changes to suggest cholecystitis. ADRENAL GLANDS: No significant masses or asymmetry. RIGHT KIDNEY AND URETER: No solid masses. No significant calcifications. No hydronephrosis or hyd roureter. LEFT KIDNEY AND URETER: No solid masses. No significant calcifications. No hydronephrosis or hydr oureter. AORTA AND VESSELS: No aneurysm. No dissection. Renal arteries, SMA, celiac without stenosis. RETROPERITONEUM: No retroperitoneal adenopathy, hemorrhage or masses. LARGE AND SMALL BOWEL: There is a large amount of stool throughout the colon. No bowel obstruction. No bowel wall thickening or mass. No significant inflammatory change or fluid. APPENDIX: Normal. ABDOMINAL WALL: No hernia or masses. PERITONEAL CAVITY: No free air. No free fluid. No peritoneal implants or masses. PELVIS: No mass or free fluid. Normal bladder. BONES: No significant or acute findings. OTHER: No other significant finding. IMPRESSION: No aortic aneurysm, dissection, or occlusion. No significant atherosclerosis. No CT ab normality to explain the patient's symptoms. TECHNICAL DOCUMENTATION: JOB ID: [id number] Quality ID # [id number]: Final reports with documentation of one or more dose reduction techniques (e.g., Au tomated exposure control, adjustment of the mA and/or kV according to patient size, use of iterative reconstruction technique) 2010 [employer] All Rights Reserved Reading location - IP/workstation name: [email or web address]
== END 2020-03-11 18:00 | disposition home or self-care (01) ==
LOC: ER 11:21
DX: R07.89 Other chest pain (principal); R06.02 Shortness of breath; R53.1 Weakness; F17.200 Nicotine dependence, unspecified, uncomplicated
CPT/HCPCS: 93005; 99285; 96374; 96375; 36415; 87086; 82550; 83690; 85025; 85610; 85730; 80053; 81001; 84484; 80307; 71046; 70450; 71275; 74174; 93010; J1200; J2930

== ENCOUNTER 2020-03-20 17:14 | Emergency (ER) | payer SELFPAY ==
[2020-03-20 18:08] VITALS: BP 132/88
--- NOTE | 2020-03-20 21:45 | ER Document Report ---
ED General - General Chief Complaint: Flu Symptoms Stated Complaint: EARS RINGING,HEADACHE,FEVER Time Seen by Provider: 03/20/20 20:13 Primary Care Provider: HEVER AMADO MD [Primary Care Provider] - Follow up as needed TRAVEL OUTSIDE OF THE [place] IN LAST 30 DAYS: No - HPI Notes: Patient is a 39-year-old male who presents with flu-like symptoms for the past day. Patient reports nasal congestion, shortness of breath, productive cough, chest discomfort, headache, ear fullness, and subjective fever. He denies nausea, vomiting, dull pain, diarrhea. He is not taking any medication for his symptoms. He also reports today at work he stood on a board that had a nail sticking out of it and stuck him in the right lateral calf. He states his last tetanus was in 2018. - Related Data Allergies/Adverse Reactions: No Known Allergies Allergy (Verified 04/27/19 13:22) Past Medical History - General Information source: Patient - Social History Smoking Status: Current Every Day Smoker Frequency of alcohol use: None Drug Abuse: None Family History: Reviewed & Not Pertinent Renal/ Medical History: Denies: Hx Peritoneal Dialysis Psychiatric Medical History: Reports: Hx Anxiety, Hx Depression Past Surgical History: Reports: Hx Orthopedic Surgery - facial reconstruction, right great toe reconstruction - Immunizations Immunizations up to date: Yes Review of Systems - Review of Systems Constitutional: See HPI EENT: See HPI Cardiovascular: See HPI Respiratory: See HPI Gastrointestinal: No symptoms reported Genitourinary: No symptoms reported Male Genitourinary: No symptoms reported Musculoskeletal: See HPI Skin: No symptoms reported Hematologic/Lymphatic: No symptoms reported Neurological/Psychological: No symptoms reported Physical Exam - Vital signs Vitals: Temp Pulse Resp BP Pulse Ox 98.2 F 76 16 132/88 H 100 03/20/20 18:06 03/20/20 18:06 03/20/20 18:06 03/20/20 18:06 03/20/20 18:06 - Notes Notes: PHYSICAL EXAMINATION: VITALS: Vitals reviewed and within normal limits. GENERAL: Well-appearing, well-nourished and in no acute distress. HEAD: Atraumatic, normocephalic. EYES: Pupils equal, round, and reactive to light, extraocular movements intact, sclera anicteric, conjunctiva are normal. ENT: Nares patent. Moist mucous membranes. Oropharynx clear with no erythema or exudates. TMs clear with no erythema and effusion noted. No frontal or maxillary sinus tenderness. NECK: Normal range of motion, supple without lymphadenopathy. LUNGS: Breath sounds clear to auscultation bilaterally and equal. No wheezes rales or rhonchi. HEART: Regular, rate, and rhythm without murmurs. ABDOMEN: Soft, nontender, normoactive bowel sounds. No guarding, no rebound. No masses appreciated. EXTREMITIES: 0.5cm puncture wound to the right lateral calf that has scabbed over. No surrounding erythema or warmth noted. Tenderness to palpation over the puncture wound but no bony tenderness. Normal range of motion, no pitting or edema. No cyanosis. NEUROLOGICAL: No focal neurological deficits. Moves all extremities spontaneously and on command. PSYCH: Normal mood, normal affect. SKIN: Warm, Dry, normal turgor, no rashes or lesions noted. Course - Re-evaluation Re-evalutation: Patient is a 39-year-old male who presents with flulike symptoms that began yesterday. Patient was initially examined and I discussed the plan for his work-up while here in the ED. Patient agreed, but immediately eloped after I walked out of the room. Work-up had not been ordered and patient was unable to be reassessed. - Vital Signs Vital signs: Temp Pulse Resp BP Pulse Ox 98.4 F 76 16 132/88 H 100 03/20/20 19:43 03/20/20 18:06 03/20/20 18:06 03/20/20 18:06 03/20/20 18:06 Discharge - Discharge Clinical Impression: Nasal congestion, Cough, Shortness of breath Headache Qualifiers: Headache type: unspecified Headache chronicity pattern: unspecified pattern Intractability: not intractable Qualified Code(s): R51.9 - Headache, unspecified Ear fullness Qualifiers: Laterality: bilateral Qualified Code(s): H93.8X3 - Other specified disorders of ear, bilateral Disposition: ELOPED Referrals: HEVER AMADO MD [Primary Care Provider] - Follow up as needed
== END 2020-03-20 21:10 | disposition left against medical advice (07) ==
LOC: ER 17:14
DX: H93.8X3 Other specified disorders of ear, bilateral (principal); R09.81 Nasal congestion; R51.9 Headache, unspecified; R50.9 Fever, unspecified; R06.02 Shortness of breath; F17.200 Nicotine dependence, unspecified, uncomplicated
CPT/HCPCS: 99281

== ENCOUNTER 2020-04-21 21:14 | Emergency (ER) | payer SELFPAY | END 2020-04-21 22:00 | disposition left against medical advice (07) | LOC: ER 21:14 | DX: Z53.21 Procedure and treatment not carried out due to patient leaving prior to being seen by health care provider (principal) ==

== ENCOUNTER 2020-04-22 18:20 | Emergency (ER) | payer SELFPAY ==
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
--- NOTE | 2020-04-22 19:06 | RADIOLOGY REPORT (SQ) ---
EXAM DESCRIPTION: FOOT RIGHT COMPLETE IMAGES COMPLETED DATE/TIME: 04/22/2020 5:47 pm REASON FOR STUDY: Right foot injury pain. Things stepped on foot. Pain at the midfoot. Surgery at the 1st digit 10 years prior. COMPARISON: None. NUMBER OF VIEWS: Three views. TECHNIQUE: AP, lateral and oblique radiographic images acquired of the right foot. LIMITATIONS: None. FINDINGS: MINERALIZATION: Normal. BONES: No acute fracture or cortical disruption. Joint replacement at the 1st digit metatarsophalang eal joint space with dystrophic calcification at this joint. Remaining joint spaces have a normal ap pearance. JOINTS: No effusions. SOFT TISSUES: No soft tissue swelling. No foreign body. OTHER: No other significant finding. IMPRESSION: No acute fracture or dislocation of the right foot. Postoperative changes 1st digit met atarsophalangeal joint space. No evidence of hardware complication. TECHNICAL DOCUMENTATION: JOB ID: [id number] 2010 [employer]- All Rights Reserved Reading location - IP/workstation name: [email or web address]
[2020-04-22 19:51] LABS: APPEARANCE,URINE SLIGHTLY-CLOUDY; BILIRUBIN,URINE NEGATIVE (NEGATIVE); COLOR,URINE YELLOW; GLUCOSE, URINE NEGATIVE (NEGATIVE); KETONES,URINE NEGATIVE (NEGATIVE); LEUKOCYTE ESTERASE,URINE TRACE (NEGATIVE); NITRITE,URINE NEGATIVE (NEGATIVE); PROTEIN,URINE NEGATIVE (NEGATIVE); URINE SPECIFIC GRAVITY 1.024
[2020-04-22 20:22] LABS: ABSOLUTE BASOPHILS # (AUTO) 0.1 10^3/uL (0.0-0.2); ABSOLUTE EOSINOPHILS # (AUTO) 0.2 10^3/uL (0.0-0.6); ABSOLUTE LYMPHOCYTES (AUTO) 2.6 10^3/uL (0.5-4.7); ABSOLUTE MONOCYTES (AUTO) 0.6 10^3/uL (0.1-1.4); ABSOLUTE NEUT (AUTO) 5.8 10^3/uL (1.7-8.2); BASOPHILS % (AUTO) 0.9 % (0-2); EOSINOPHILS % (AUTO) 2.1 % (0-6); HEMATOCRIT 35.2 % (37.9-51.0); HEMOGLOBIN 12.4 g/dL (13.5-17.0); LYMPHOCYTES % (AUTO) 28.2 % (13-45); MEAN CORPUSCULAR HEMOGLOBIN 30.4 pg (27.0-33.4); MEAN CORPUSCULAR HGB CONC 35.2 g/dL (32.0-36.0); MEAN CORPUSCULAR VOLUME 86 fl (80-97); MONOCYTES % (AUTO) 6.1 % (3-13); PLATELET COUNT 277 10^3/uL (150-450); RED BLOOD COUNT 4.08 10^6/uL (4.35-5.55); RED CELL DISTRIBUTION WIDTH 13.2 % (11.5-14.0); SEGMENTED NEUTROPHILS % (AUTO) 62.7 % (42-78); TOTAL CELLS COUNTED % (AUTO) 100 %; WHITE BLOOD COUNT 9.2 10^3/uL (4.0-10.5)
[2020-04-22] MEDS ORDERED: OXYCODONE-ACETAMINOPHEN 5-325 MG TABLET PO ONE (20:36)
[2020-04-22] MEDS ORDERED: HYDROCODONE/ACETAMINOPHEN 5-325 MG (6 TAB/ER DISP) PO PRN (20:36)
--- NOTE | 2020-04-22 20:40 | ER Document Report ---
ED General - General Chief Complaint: Foot Injury Stated Complaint: RIGHT FOOT INJURY/PAIN Time Seen by Provider: 04/22/20 18:23 Primary Care Provider: HEVER AMADO MD [Primary Care Provider] - Follow up as needed Mode of Arrival: Ambulatory TRAVEL OUTSIDE OF THE [place] IN LAST 30 DAYS: No - HPI Notes: Patient is a 39-year-old male who presents emergency department for evaluation of right foot pain. He states of PEG pushed it against a bar while he was standing on a fence. He has had pain ever since then. Hurts to move. Hurts to bear weight, but he is able to do so. He denies any fevers or chills. No nausea or vomiting. He is eating and drinking normally. Peeing and moving his bowels normally. His last tetanus shot was approximately 1 year ago. He has had surgery to this great toe, with reconstruction after a bunionectomy. He was concerned about that. - Related Data Allergies/Adverse Reactions: No Known Allergies Allergy (Verified 04/27/19 13:22) Past Medical History - General Information source: Patient - Social History Smoking Status: Current Every Day Smoker Frequency of alcohol use: None Drug Abuse: None Family History: Reviewed & Not Pertinent Renal/ Medical History: Denies: Hx Peritoneal Dialysis Psychiatric Medical History: Reports: Hx Anxiety, Hx Depression Traumatic Medical History: Reports: Hx Fractures - Multiple facial fractures Past Surgical History: Reports: Hx Orthopedic Surgery - facial reconstruction, right great toe reconstruction - Immunizations Immunizations up to date: Yes Review of Systems - Review of Systems Constitutional: No symptoms reported EENT: No symptoms reported Cardiovascular: No symptoms reported Respiratory: No symptoms reported Gastrointestinal: No symptoms reported Genitourinary: No symptoms reported Musculoskeletal: See HPI Skin: No symptoms reported Neurological/Psychological: No symptoms reported -: Yes All other systems reviewed and negative Physical Exam - Vital signs Vitals: Temp Pulse Resp BP Pulse Ox 98.4 F 76 16 133/93 H 100 04/22/20 18:26 04/22/20 18:26 04/22/20 18:26 04/22/20 18:26 04/22/20 18:26 - Notes Notes: Vital signs reviewed, please refer to chart. Head is normocephalic, atraumatic. Pupils equal round, reactive to light. Neck is supple without meningismus. Heart is regular rate and rhythm. Lungs are clear to auscultation bilaterally. Abdomen is soft, nontender, normoactive bowel sounds throughout. Extremities without cyanosis, clubbing. Posterior calves are nontender. Examination of the right foot yields no obvious deformity. He has full range of motion of the toes, although it is painful. He has abrasions noted over the fourth and fifth digits without any extensive erythema or lymphangitic streaking noted. Peripheral pulses are equal. Skin is warm and dry. Patient is awake, alert, neurological exam is nonfocal. Course - Re-evaluation Re-evalutation: 04/22/20 20:39 Patient presents emergency department for evaluation. He has pain in his right foot he sustained an injury. He has abrasions, but I do not see any signs of infection. He said no fevers or chills. He has no leukocytosis. I will treat him for his acute pain. Pending resolve his metabolic panel, patient will be sent home with a small amount of Vicodin. He is told to take [id number] ibuprofen. He is to keep his wounds clean with soap and water. He is to follow-up with primary care next week, return to the ED with worsening. 04/22/20 21:03 Again, patient shows no signs of infection, no leukocytosis, no fevers. I will send him home symptomatic medications and close follow-up. He is to return to the ED with worsening. - Vital Signs Vital signs: Temp Pulse Resp BP Pulse Ox 97.9 F 76 16 123/72 99 04/22/20 21:10 04/22/20 21:10 04/22/20 21:10 04/22/20 21:10 04/22/20 21:10 - Laboratory Result Diagrams: 04/22/20 20:00 04/22/20 20:00 Laboratory results interpreted by me: 04/22/20 04/22/20 04/22/20 19:20 20:00 20:00 RBC 4.08 L Hgb 12.4 L Hct 35.2 L Glucose 115 H Urine Urobilinogen 4.0 H Ur Leukocyte Esterase TRACE H - Diagnostic Test Radiology reviewed: Reports reviewed Radiology results interpreted by me: 04/22/20 20:40 Foot X-Ray 04/22/20 18:30 IMPRESSION: No acute fracture or dislocation of the right foot. Postoperative changes 1st digit metatarsophalangeal joint space. No evidence of hardware c omplication. Discharge - Discharge Clinical Impression: Right foot injury Qualifiers: Encounter type: initial encounter Qualified Code(s): S99.921A - Unspecified injury of right foot, initial encounter Toe abrasion Qualifiers: Encounter type: initial encounter Laterality: right Qualified Code(s): S90.414A - Abrasion, right lesser toe(s), initial encounter Condition: Stable Disposition: HOME, SELF-CARE Instructions: Abrasions ([facility]) Additional Instructions: Rest foot when possible. Keep elevated. Keep wounds clean with soap and water. Take medications as needed for severe pain, please watch for constipation, dizziness, drowsiness with the [place]. Otherwise take [id number] ibuprofen as directed for pain. Follow-up with your primary care provider next week. Return to the emergency department worsening or new concerning symptoms of any sort. Referrals: HEVER AMADO MD [Primary Care Provider] - Follow up as needed
[2020-04-22 20:41] LABS: ALBUMIN 4.2 g/dL (3.5-5.0); ALKALINE PHOSPHATASE 87 U/L (38-126); ANION GAP 9 (5-19); ASPARTATE AMINO TRANSFERASE 34 U/L (17-59); BILIRUBIN,DIRECT 0.1 mg/dL (0.0-0.4); BILIRUBIN,TOTAL 0.2 mg/dL (0.2-1.3); BLOOD UREA NITROGEN 20 mg/dL (7-20); CALCIUM 9.4 mg/dL (8.4-10.2); CARBON DIOXIDE 27 mmol/L (22-30); CHLORIDE 104 mmol/L (98-107); GLUCOSE 115 mg/dL (75-110); POTASSIUM 3.9 mmol/L (3.6-5.0)
[2020-04-22 21:14] VITALS: BP 123/72
== END 2020-04-22 21:15 | disposition home or self-care (01) ==
LOC: ER 18:20
DX: S99.921A Unspecified injury of right foot, initial encounter (principal); S90.414A Abrasion, right lesser toe(s), initial encounter; M79.671 Pain in right foot; F17.200 Nicotine dependence, unspecified, uncomplicated; W22.8XXA Striking against or struck by other objects, initial encounter
CPT/HCPCS: 36415; 80053; 81001; 85025; 87040; 99284